=== PATIENT | female | born 1995 | race Caucasian/White ===

== ENCOUNTER 2020-04-15 20:26 | Emergency (ER) | payer SELFPAY ==
[~2020-04-15] VITALS: Ht 170.2 cm; Wt 57.2 kg
--- NOTE | 2020-04-15 20:30 | NUR ---
24 Y/O BIBA C/O HIVES ON NECK, ARMS AND BACK OF LEGS SINCE TODAY. NO NEW FOOD OR SOAP. PT STATES HIVES DO NOT ITCH AT THIS TIME. BENADRYL IN FIELD GIVEN BY EMS. DENIES PAIN. [facility]- [facility]- PROZAC Addendum: 04/15/20 at 2041 by [email or web address] IV LFA 20G, INSERTED BY EMS.
[2020-04-15 20:31] VITALS: BP 103/57
--- NOTE | 2020-04-15 21:20 | NUR ---
ERMD AT BEDSIDE EVALUTING PT
[2020-04-15] MEDS ORDERED: methylPREDNISolone SS 125 MG/2 ML VIAL IVP ONE (21:50)
[2020-04-15] MEDS ORDERED: diphenhydrAMINE 50 MG/ML VIAL IVP ONE (21:50)
[2020-04-15] MEDS ORDERED: FAMOTIDINE 20 MG/2 ML VIAL IVP ONE (21:50)
--- NOTE | 2020-04-15 22:08 | NUR ---
PT AMBULATED TO RESTROOM STEADY GAIT
[2020-04-15 23:30] VITALS: BP 103/57
--- NOTE | 2020-04-15 23:30 | NUR ---
Patient discharged with v/s stable. Written and verbal after care instructions given and explained. Patient alert, oriented and verbalized understanding of instructions. Ambulatory with steady gait. All questions addressed prior to discharge. ID band removed. IV Discontinued. Patient advised to follow up with PMD. Rx of EPIPEN, FAMOTIDINE, AND PREDNISONE given. Patient educated on indication of medication including possible reaction and side effects. Opportunity to ask questions provided and answered.
== END 2020-04-15 23:30 | disposition home or self-care (01) ==
LOC: MED 20:26
DX: L50.9 Urticaria, unspecified (principal); F41.9 Anxiety disorder, unspecified; F32.9 Major depressive disorder, single episode, unspecified
CPT/HCPCS: 81025; 96374; 96375; 99284; J1200; J2930; J3490